=== PATIENT | female | born 1980 | race African-American/Black ===

== ENCOUNTER 2023-11-01 15:24 | Emergency (ER) | payer MEDICAID, SELFPAY ==
--- NOTE | ~2023-11-01 | XR_ITS ---
EXAMINATION: XR chest 2V Exam Date/Time: 11/01/2023 16:00 CDT HISTORY: cp INTERMITTENTLY SINCE 2199 LAST NIGHT Comparison: None. RESULT: Lines, tubes, and devices: None. Lungs and pleura: Clear. Cardiomediastinal silhouette: Stable. Other: No acute osseous or upper abdominal finding. IMPRESSION: No acute cardiopulmonary process. Reviewed, dictated and finalized at location [facility].
--- NOTE | 2023-11-01 15:34 | ECG_ITS ---
Test Date: 2023-11-01 15:34:15 Measurements Intervals [place] Rate: 81 P: 52 MA: 163 QRS: 31 QRSD: 83 T: 19 QT: 374 QTc: 436 Interpretive Statements SINUS RHYTHM POSSIBLE LEFT ATRIAL ENLARGEMENT DELAYED PRECORDIAL R/S TRANSITION BORDERLINE ECG No previous ECG available for comparison Electronically Signed On 11-01-2023 15:59:56 CDT by Fede Connors D.O.
[2023-11-01 15:36] VITALS: BP 166/102; PULSE 83; RESP 21; TEMP 36.8; O2SAT 100
[2023-11-01] MEDS: ASPIRIN 81 MG CHEWABLE TABLET 324 MG PO (15:44)
[2023-11-01 15:52] VITALS: PULSE 84
[2023-11-01 16:00] LABS: Basophils Percent Auto 0.4 % (0.2-1.2); Eosinophils Absolute Auto 0.1 K/mm3 (0-0.3); Eosinophils Percent Auto 1.1 % (0-4.4); Hematocrit 40.1 % (37.0-47.0); Hemoglobin 13.2 g/dL (12.0-15.0); Immature Granulocyte Absolute 0.06 K/mm3 (0.00-0.031); Immature Granulocyte Percent A 1.1 % (0-0.5); Lymphocytes Absolute Auto 1.65 K/mm3 (0.9-3.2); Lymphocytes Percent Auto 29.6 % (18.3-44.2); Mean Corpuscular HGB Conc 32.9 g/dl (32-36); Mean Corpuscular Hemoglobin 31.6 pg (26-34); Mean Corpuscular Volume 95.9 fl (80-100); Mean Platelet Volume 10.7 fl (7.4-10.4); Monocytes Absolute Auto 0.4 K/mm3 (0.1-0.6); Monocytes Percent Auto 7.4 % (2.6-8.5); Neutrophils Absolute Auto 3.4 K/mm3 (1.3-6.7); Neutrophils Percent Auto 60.4 % (45.5-73.1); Platelet Count Result 333 k/mm3 (150-375); Red Blood Count 4.18 M/mm3 (4.2-5.4); Red Cell Distribution Width 13.8 % (11.5-14.5); White Blood Count 5.6 K/mm3 (4.5-10.0)
[2023-11-01] MEDS: BELLADONNA ALK/PHENOB ELIX 10 ML, MAG HYDROX/ALUMINUM HYD/SIMETH 30 ML, LIDOCAINE HCL 2... PO (16:05)
[2023-11-01 16:08] VITALS: BP 155/106; PULSE 88; RESP 17; O2SAT 100
[2023-11-01 16:13] LABS: Alanine Aminotransferase 20 U/L (6-35); Albumin Level 4.8 g/dL (3.5-5.1); Alkaline Phosphatase 65 U/L (38-126); Anion Gap 11 mmol/L (4-12); Aspartate Amino Transferase 27 U/L (14-36); Bilirubin,Total 0.5 mg/dL (0.2-1.3); Blood Urea Nitrogen 9 mg/dL (7-17); Calcium 9.1 mg/dL (8.4-10.2); Carbon Dioxide 24 mmol/L (22-30); Chloride 101 mmol/L (98-107); Estimated CRCL calculation 62 ml/min; Estimated Glomerular Filt Rate 60; Glucose 94 mg/dL (65-110); Lipase 42 U/L (23-300); Potassium 3.5 mmol/L (3.4-5.0); Sodium 136 mmol/L (137-145)
[2023-11-01 16:15] LABS: Prothrombin Time 13.6 Seconds (11.1-14.7)
[2023-11-01 16:16] LABS: Partial Thromboplastin Time 26.7 Seconds (22.3-36.8)
[2023-11-01 16:24] LABS: Troponin I < 0.012 ng/mL (0.000-0.034)
--- NOTE | 2023-11-01 17:38 | ED.GENADULT ---
HPI - General Adult General Chief complaint: Chest Pain Stated complaint: chest pain since yesterday after eating [employer] Time Seen by Provider: 11/01/23 15:42 History of Present Illness HPI narrative: Patient is a 42-year-old female who presents ER with central chest discomfort. Began last night after eating [employer]. Worse swelling down. Has been taste on back her mouth. No exertional discomfort. No fevers or chills or sweats. No history of heart disease. No diarrhea or vomiting. Related Data Allergies Allergy/AdvReac Type Severity Reaction Status Date / Time No Known Allergies Allergy Verified 11/01/23 15:43 Review of Systems Review of Systems: All systems reviewed & are unremarkable except as noted in HPI and below Constitutional: Constitutional: Reports no additional constitutional complaints ENT: Reports system reviewed and no additional complaints, except as documented Cardiovascular: Cardiovascular: Reports no additional cardiovascular complaints Respiratory: Respiratory: Reports no additional respiratory complaints Gastrointestinal: Gastrointestinal: Denies abdominal pain, Reports heartburn, Denies diarrhea, Denies nausea and Denies vomiting PMFSH Past Medical History Medical History (Updated 11/01/23 @ 17:46 by Paresh Pinzon MD) Healthy female adult Surgical History Surgical History (Updated 11/01/23 @ 17:46 by Paresh Pinzon MD) No pertinent past surgical history Exam Narrative: GENERAL: Well-appearing, well-nourished, and in no acute distress. HEAD: Normocephalic, atraumatic. ENT: Mucous membranes moist. CHEST: Clear to auscultation. No respiratory distress. HEART: Regular rate and rhythm. Normal peripheral pulses. ABDOMEN: Soft, nontender, nondistended. EXTREMITIES: Normal range of motion. No edema. SKIN: Warm, dry, no rash. NEURO: Alert and oriented x3. PSYCH: Normal mood and affect. Course Course Emergency Course: Symptoms improved with GI cocktail. Informed lab and imaging results as well as EKG. Normal evaluation. Discharge home. Vital Signs Vital signs: Vital Signs Temperature 98.2 F 11/01/23 15:36 Pulse Rate 83 11/01/23 15:36 Respiratory Rate 21 H 11/01/23 15:36 Blood Pressure 166/102 H 11/01/23 15:36 Pulse Oximetry 100 11/01/23 15:36 Oxygen Delivery Room Air 11/01/23 15:36 Temperature 98.2 F 11/01/23 15:36 Pulse Rate 88 11/01/23 16:08 Respiratory Rate 17 11/01/23 16:08 Blood Pressure 155/106 H 11/01/23 16:08 Pulse Oximetry 100 11/01/23 16:08 Oxygen Delivery Room Air 11/01/23 15:36 Medical Decision Making Vital Signs Vital Signs: Vital Signs Temperature 98.2 F 11/01/23 15:36 Pulse Rate 83 11/01/23 15:36 Respiratory Rate 21 H 11/01/23 15:36 Blood Pressure 166/102 H 11/01/23 15:36 Pulse Oximetry 100 11/01/23 15:36 Oxygen Delivery Room Air 11/01/23 15:36 Temperature 98.2 F 11/01/23 15:36 Pulse Rate 88 11/01/23 16:08 Respiratory Rate 17 11/01/23 16:08 Blood Pressure 155/106 H 11/01/23 16:08 Pulse Oximetry 100 11/01/23 16:08 Oxygen Delivery Room Air 11/01/23 15:36 Lab Data 11/01/23 15:52 11/01/23 15:52 Labs: Lab Results 11/01/23 Range/Units 15:52 WBC 5.6 (4.5-10.0) K/mm3 RBC 4.18 L (4.2-5.4) M/mm3 Hgb 13.2 (12.0-15.0) g/dL Hct 40.1 (37.0-47.0) % MCV 95.9 (80-100) fl MCH 31.6 (26-34) pg MCHC 32.9 (32-36) g/dl RDW 13.8 (11.5-14.5) % Plt Count 333 (150-375) k/mm3 MPV 10.7 H (7.4-10.4) fl Immature Gran % (Auto) 1.1 H (0-0.5) % Neut % (Auto) 60.4 (45.5-73.1) % Lymph % (Auto) 29.6 (18.3-44.2) % Mckean % (Auto) 7.4 (2.6-8.5) % Eos % (Auto) 1.1 (0-4.4) % Baso % (Auto) 0.4 (0.2-1.2) % Lymph # (Auto) 1.65 (0.9-3.2) K/mm3 Mckean # (Auto) 0.4 (0.1-0.6) K/mm3 Eos # (Auto) 0.1 (0-0.3) K/mm3 Baso # (Auto) 0.0 (0.0-0.1) K/mm3 Abs Immat Gran (auto) 0.06 H (0.0
[2023-11-01 18:01] VITALS: BP 136/89; PULSE 91; RESP 19; TEMP 37; O2SAT 100
== END 2023-11-01 18:03 | disposition home or self-care (01) ==
PROVIDERS: Emergency Provider Emergency Medicine
DX: K21.9 Gastro-esophageal reflux disease without esophagitis (principal); R94.31 Abnormal electrocardiogram [ECG] [EKG]
CPT/HCPCS: 36415; 71046; 80053; 83690; 84484; 85025; 85610; 85730; 93005; 99284; A9270